=== PATIENT | female | born 1965 | race Caucasian/White ===

== ENCOUNTER 2020-12-24 14:03 | Emergency (ER) | payer OTHER ==
[~2020-12-24] VITALS: Ht 185.4 cm; Wt 70.3 kg
[~2020-12-24 14:03] MED LIST: KEFLEX500 MG PO; ULTRAM 50MG TAB50 MG PO
[2020-12-24] MEDS ORDERED: NORTRIPTYLINE H50 M3 PO ×2 (14:12)
[2020-12-24] MEDS ORDERED: DRIZALMA SPRINK60 MG PO ×2 (14:12)
[2020-12-24] MEDS ORDERED: ACYCLOVIR 200200 MG PO ×2 (14:12)
[2020-12-24] MEDS ORDERED: ALPRAZOLAM XR3 MG PO ×2 (14:13)
[2020-12-24 16:57] LABS: HEMATOCRIT 39.6 % (37.0-47.0); HEMOGLOBIN 13.8 gm/dL (12.0-15.0); MCH 30.9 pg (26.0-34.0); MCHC 34.8 g/dL (28.0-37.0); MPV 8.8 fl. (7.2-11.1); NUCLEATED RBCS 1 /100WBC; PLATELET COUNT* 98 thou/uL (150-400); RBC 4.45 mil/uL (4.20-5.00); RDW-CV 12.8 % (10.5-14.5); WBC 6.5 thou/uL (4.0-11.0)
[2020-12-24 17:06] LABS: CALCIUM 10.2 mg/dL (8.5-10.1); CREATININE 1.4 mg/dL (0.6-1.3)
[2020-12-24 17:11] LABS: ALBUMIN 3.9 g/dL (3.4-5.0); TOTAL BILIRUBIN 0.4 mg/dL (<0.1-1.0); TOTAL PROTEIN 7.6 g/dL (6.4-8.2)
[2020-12-24 17:32] LABS: ABSOLUTE EOSINOPHILS 0.1 thou/uL (0.0-0.7); ABSOLUTE LYMPHOCYTES 3.1 thou/uL (0.8-5.3); ABSOLUTE MONOCYTES 0.2 thou/uL (0.0-1.2); ABSOLUTE NEUTROPHILS 3.1 thou/uL (1.6-8.1)
[2020-12-24 17:33] LABS: PLATELET ESTIMATE DECREASED; POLYCHROMASIA Occasional
[2020-12-24] MEDS ORDERED: NORCO5 PO ×4 (19:19→19:24)
[2020-12-24] MEDS ORDERED: PREDNISONE 20 M20 MG PO ×2 (19:19)
[2020-12-24] MEDS ORDERED: PROAIR HFA8.5 GM INH ×2 (19:19)
[2020-12-24 19:35] VITALS: BP 118/74
--- NOTE | 2020-12-25 09:55 | EKG ---
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: : 1965 Requested By: Merlyn Arthur Order Number: [id number] MD: Pramod Lyles Measurements Intervals [place] Rate: 96 P: 82 NC: 171 QRS: 37 QRSD: 98 T: 17 QT: 361 QTc: 457 Interpretive Statements Sinus rhythm nonspecific st segment changes Probable left atrial enlargement No previous ECG available for comparison Electronically Signed On 12-25-2020 9:55:07 CDT by Pramod Lyles [email or web address] <ELECTRONICALLY SIGNED> By: Pramod Lyles MD, [facility] 12/25/20 0955 31 31 Pramod Lyles MD, [facility] /EPI
== END 2020-12-24 19:35 | disposition home or self-care (01) ==
LOC: M.ERS 14:03
PROVIDERS: Physician Assistant
DX: J44.1 Chronic obstructive pulmonary disease with (acute) exacerbation (principal); Z20.822 Contact with and (suspected) exposure to COVID-19; M94.0 Chondrocostal junction syndrome [Tietze]; F41.9 Anxiety disorder, unspecified; F32.9 Major depressive disorder, single episode, unspecified; Z79.899 Other long term (current) drug therapy; Z88.0 Allergy status to penicillin; Z90.710 Acquired absence of both cervix and uterus

== ENCOUNTER 2020-12-27 23:34 | Observation (INO) | payer OTHER ==
[~2020-12-27] VITALS: Ht 185.4 cm; Wt 70.3 kg
[~2020-12-27 23:34] MED LIST changes: +ACYCLOVIR 200200 MG PO; +ALPRAZOLAM XR3 MG PO; +DRIZALMA SPRINK60 MG PO; +NORCO5 PO; +NORTRIPTYLINE H50 M3 PO; +PREDNISONE 20 M20 MG PO; +PROAIR HFA8.5 GM INH
[2020-12-27 23:42] VITALS: BP 133/54
[2020-12-28 00:39] LABS: BE 0.2 mmol/L (-2 to +3); PCO2 34.5 mmHg (35.0-45.0); pH 7.454 (7.340-7.450)
[2020-12-28 00:40] LABS: ABSOLUTE BASOPHILS 0.1 thou/uL (0.0-0.2); ABSOLUTE MONOCYTES 0.4 thou/uL (0.0-1.2); ABSOLUTE NEUTROPHILS 6.9 thou/uL (1.6-8.1); BASOPHILS 0.5 %; EOSINOPHILS 0.3 %; HEMATOCRIT 37.2 % (37.0-47.0); HEMOGLOBIN 12.7 gm/dL (12.0-15.0); LYMPHOCYTES 28.8 %; MCH 31.3 pg (26.0-34.0); MCHC 34.2 g/dL (28.0-37.0); MCV 91.3 fL (80.0-100.0); MONOCYTES 3.6 %; MPV 9.5 fl. (7.2-11.1); NUCLEATED RBCS 1 /100WBC; PLATELET COUNT* 101 thou/uL (150-400); POLYS 66.8 %; RBC 4.07 mil/uL (4.20-5.00); RDW-CV 12.8 % (10.5-14.5); WBC 10.3 thou/uL (4.0-11.0)
[2020-12-28 01:13] LABS: CALCIUM 8.9 mg/dL (8.5-10.1); CREATININE 1.3 mg/dL (0.6-1.3); POTASSIUM 3.9 mmol/L (3.5-5.1)
[2020-12-28 01:17] LABS: ALBUMIN 3.5 g/dL (3.4-5.0); MAGNESIUM 2.2 mg/dL (1.8-2.4); TOTAL BILIRUBIN 0.3 mg/dL (<0.1-1.0)
[2020-12-28 08:22] VITALS: BP 138/84
[2020-12-28 09:05] VITALS: BP 134/80
[2020-12-28 09:15] VITALS: BP 130/80
--- NOTE | 2020-12-28 09:15 | NUR ---
ER ADMIT TO RM 207 VIA WC REPORT GIVEN AT BEDSIDE PATIENT DENIES PAIN ORIENTED TO RM AND CALL LIGHT
[2020-12-28] MEDS ORDERED: COLACE100 MG PO ×2 (10:24)
[2020-12-28] MEDS ORDERED: XANAX XR2 MG PO ×2 (10:25)
[2020-12-28] MEDS ORDERED: TIZANIDINE HCL4 M1 PO ×2 (10:27)
[2020-12-28] MEDS ORDERED: TRAMADOL 50 MG50 MG PO ×2 (10:28)
[2020-12-28 12:00] VITALS: BP 120/72
--- NOTE | 2020-12-28 15:11 | NUR ---
Admission Assessment Admitted from home by EMS Spoke to Donald, SO Mental Status upon admission Alert & Oriented x 3 Living Arrangements: House Lives with: Significant other Support system: Name Phone number Relationship Donald Dunham [phone] Significant other Can patient return to prior living arrangements? Yes No Activities of daily living: Independent Pts mom lives with her and pt is her caregiver. Mom is currently placed at wellness center while pt in hospital. Assistive device: No DME Prior resource use: None CM will continue to follow for discharge planning needs, Discussed may need O2 at home and this will be checked prior to discharge. Pts mom has O2 Concentrator but Donald did not know company she uses. Will Follow up with pt when she is available.
[2020-12-28 16:00] VITALS: BP 127/76
--- NOTE | 2020-12-28 17:06 | EKG ---
[place] [address] ELECTROCARDIOGRAM REPORT Name: KIMBERLY MURPHY Room: [address] ADM [place] ..#: [id number] Admission: 12/28/20 Attend Phys: Obi Neal Discharge: Date of : 69 Date of Service: 12/27/20 2338 Report #: [id number] THIS REPORT FOR: //name// [facility] ED Test Date: 2020-12-27 Test Time: 23:38:58 Pat Name: KIMBERLY MURPHY Department: Room: 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: ANNAMARIE : 1965 Requested By: Keesha Stone Order Number: [id number] MD: Darryl Spencer Measurements Intervals [place] Rate: 111 P: 80 ME: 183 QRS: 26 QRSD: 83 T: 245 QT: 295 QTc: 401 Interpretive Statements Sinus tachycardia Abnrm T, consider ischemia, anterolateral lds Baseline wander in lead(s) V2,V6 Compared to ECG 12/24/2020 16:32:51 Possible ischemia now present Sinus rate has increased Electronically Signed On 12-28-2020 17:05:48 CDT by Darryl Spencer [email or web address] <ELECTRONICALLY SIGNED> By: Darryl Spencer MD, [facility] 12/28/20 1705 2338 2338 Darryl Spencer MD, [facility] /EPI
[2020-12-28 19:09] LABS: URINE BILIRUBIN NEGATIVE (Negative); URINE BLOOD NEGATIVE (Negative); URINE CLARITY CLEAR; URINE COLOR YELLOW; URINE GLUCOSE-RANDOM NEGATIVE (Negative); URINE KETONES NEGATIVE (Negative); URINE LEUKOCYTES-REFLEX NEGATIVE (Negative); URINE NITRITE-REFLEX NEGATIVE (Negative); URINE PROTEIN NEGATIVE (Negative); URINE SPECIFIC GRAVITY <= 1.005 (1.005-1.030); URINE UROBILINOGEN 0.2 E.U./dl (0.2-1.0)
[2020-12-28 19:18] LABS: AMP/METHAMP Negative (Negative); BARBITURATES Negative (Negative); BENZODIAZEPINES POSITIVE (Negative); COCAINE Negative (Negative); METHADONE Negative (Negative); OPIATES Negative (Negative); PCP Negative (Negative); THC Negative (Negative)
[2020-12-28 20:18] VITALS: BP 128/76
[2020-12-29] VITALS (7 sets, daily range): BP systolic 112–126; BP diastolic 66–84
[2020-12-29 04:14] LABS: HEMOGLOBIN 12.9 gm/dL (12.0-15.0); MCHC 34.9 g/dL (28.0-37.0); MCV 88.9 fL (80.0-100.0); MPV 9.4 fl. (7.2-11.1); NUCLEATED RBCS 1 /100WBC; PLATELET COUNT* 102 thou/uL (150-400); RBC 4.16 mil/uL (4.20-5.00); RDW-CV 12.8 % (10.5-14.5); WBC 11.9 thou/uL (4.0-11.0)
[2020-12-29 04:37] LABS: CALCIUM 9.8 mg/dL (8.5-10.1); CREATININE 1.2 mg/dL (0.6-1.3); POTASSIUM 4.4 mmol/L (3.5-5.1)
[2020-12-29 05:22] LABS: ABSOLUTE LYMPHOCYTES 2.7 thou/uL (0.8-5.3); ABSOLUTE MONOCYTES 0.2 thou/uL (0.0-1.2); ABSOLUTE NEUTROPHILS 8.9 thou/uL (1.6-8.1); PLATELET ESTIMATE DECREASED
[2020-12-29 05:23] LABS: ANISOCYTOSIS 1+; POIKILOCYTOSIS 1+; POLYCHROMASIA Occasional
--- NOTE | 2020-12-29 06:22 | NUR ---
PT A&OX4, VSS ON 2L NC. IV SALINE LOCKED. PT SR ON TELE MONITOR. NO CO PAIN OR DISCOMFORT THIS SHIFT. PT SLEPT WELL. WILL CONTINUE TO MONITOR.
--- NOTE | 2020-12-29 16:40 | NUR ---
Pt discharging to home today. Home o2 arranged through [employer]
--- NOTE | 2020-12-29 18:32 | NUR ---
PATIENT HAS REMAINED A&OX4, PLEASANT AND COOPERATIVE WITH CARES THIS SHIFT. MEDICATIONS ADMINISTERED ORDERED. PATIENT GIVEN DISCHARGE INSTRUCTIONS WHEN HER O2 TANK ARRIVED. IV REMOVED. PATIENT DENIES PAIN/QUESTIONS/CONCERNS PRIOR TO D/C. PATIENT LEFT UNIT WITH PERSONAL BELONGINGS VIA W/C, ACCOMPANIED BY NURSING STAFF AT APPROX. 1820 TO MEET FRIEND AT ER ENTRANCE.
== END 2020-12-29 18:20 | disposition home or self-care (01) ==
LOC: M.ERS 23:34 → M.TBA-ER 12-28 04:02 → M.2W 12-28 09:29
PROVIDERS: Internal Medicine; Personal Emergency Response Attendant; ADMIT Internal Medicine; ATTEND Internal Medicine
DX: J96.01 Acute respiratory failure with hypoxia (principal); Z20.822 Contact with and (suspected) exposure to COVID-19; J42 Unspecified chronic bronchitis; J20.9 Acute bronchitis, unspecified; J43.9 Emphysema, unspecified; M47.898 Other spondylosis, sacral and sacrococcygeal region; M54.9 Dorsalgia, unspecified; G89.29 Other chronic pain; F41.9 Anxiety disorder, unspecified; M79.7 Fibromyalgia; F32.9 Major depressive disorder, single episode, unspecified; Z87.891 Personal history of nicotine dependence; Z79.899 Other long term (current) drug therapy